=== PATIENT | male | born 1940 | race Caucasian/White ===

== ENCOUNTER 2018-07-13 05:53 | Emergency (ER) | payer OTHER ==
[~2018-07-13] VITALS: Ht 175.3 cm; Wt 70.3 kg
[~2018-07-13 05:53] MED LIST: ALBUTEROL17 G1 IH; AMLODIPINE BESY10 MG; ATORVASTATIN CA20 MG; AZELAIC ACID; BREO ELLIPTA 21 EACH; BREO ELLIPTA I1 EACH; CARDIZEM CD120 MG PO; GLIPIZIDE10 MG; GLIPIZIDE5 MG PO; GLUCOTROL10 MG; HYDROCHLOROTHIA25 MG; IBUPROFEN25 GM MC; INDOMETHACIN25 MG PO; LIPITOR40 MG PO; NEURONTIN PO; NEURONTIN600 MG; PLAVIX 75MG PO; PRADAXA150 MG; PROSCAR5 MG; ROPINIROLE HCL4 M1; SINEMET PO; SPIRIVA RESPIMAT4 G1; TAMS0.4C; TENORMIN50 M1; XOPENEX HFA15 GM; XOPENEX HFA15 GM IH; [UNRECOGNIZED DRUG - OTHER]; [UNRECOGNIZED DRUG - OTHER]
== END 2018-07-13 20:57 | disposition home or self-care (01) ==
LOC: ER 05:53
DX: R40.4 Transient alteration of awareness (principal); E87.6 Hypokalemia; G20 Parkinson's disease